=== PATIENT | male | born 2005 | race Hispanic/Latino ===

== ENCOUNTER 2023-09-06 01:58 | Emergency (ER) | payer SELFPAY ==
[2023-09-06] MEDS ORDERED: Ibuprofen 200 MG TAB ONE (08:18)
== END 2023-09-06 08:27 | disposition home or self-care (01) ==
LOC: ERS 01:58
DX: H66.93 Otitis media, unspecified, bilateral (principal)
CPT/HCPCS: 99282

== ENCOUNTER 2023-11-24 18:52 | Emergency (ER) | payer SELFPAY ==
[2023-11-24] MEDS ORDERED: Ondansetron ODT 4 MG TAB ONE ×2 (21:07→22:12)
== END 2023-11-24 22:29 | disposition home or self-care (01) ==
LOC: ERS 18:52
DX: B34.9 Viral infection, unspecified (principal); F17.290 Nicotine dependence, other tobacco product, uncomplicated
CPT/HCPCS: 70450; 87428; Q0162

== ENCOUNTER 2024-03-13 07:23 | Emergency (ER) | payer SELFPAY ==
[2024-03-13] MEDS ORDERED: diphenhydrAMINE 50 MG/ML VIAL ONE (07:49)
[2024-03-13] MEDS ORDERED: Metoclopramide HCl 10 MG (2 mL) VIAL ONE (07:50)
[2024-03-13] MEDS ORDERED: Haloperidol Lactate 5 MG/ML VIAL ONE (07:50)
[2024-03-13] MEDS ORDERED: Ondansetron PF 4 MG/2 ML Vial ONE (07:50)
[2024-03-13 08:03] LABS: #Basophils 0.03 10x3/uL (0.0-0.2); %Basophils 0.4 % (0.0-1.0); %Eosinophils 0.4 % (0.0-10.0); %Lymphocytes 19.6 % (28.0-48.0); %Monocytes 7.6 % (0.0-4.0); %Neutrophils 71.9 % (31.0-61.0); Hematocrit 43.4 % (42.0-52.0); Hemoglobin 15.1 g/dL (14.0-18.0); Mean Corpuscular HGB CONC 34.8 g/dL (32.0-36.0); Mean Corpuscular Volume 83.3 fL (78.0-98.0); Mean Platelet Volume 12.6 fL (7.4-10.4); Platelet Count 129 10x3/uL (130-400); RBC Distribution Width 12.4 % (11.5-14.5); Red Blood Cell (RBC) Count 5.21 mill/uL (4.00-5.20)
[2024-03-13 08:18] LABS: ALT (SGPT) 15 U/L (Less than 45); AST (SGOT) 18 U/L (11-34); Albumin 4.3 g/dL (3.1-4.5); Alkaline Phosphatase 74 U/L (50-130); Anion Gap 12 mmol/L (10-20); BUN (Urea Nitrogen) 8 mg/dL (8.9-20.6); Calc. Creatinine Clearance 0 mL/min (70-130); Calcium 9.5 mg/dL (7.8-10.44); Carbon Dioxide 26 mmol/L (22-29); Chloride 107 mmol/L (98-107); Estimated GFR 119; Globulin 3.1 g/dL (2.4-3.5); Glucose 113 mg/dL (70-105); Lipase 10 U/L (8-78); Potassium 3.6 mmol/L (3.5-5.1); Protein, Total 7.4 g/dL (6.0-8.3); Sodium 141 mmol/L (136-145)
== END 2024-03-13 08:53 | disposition home or self-care (01) ==
LOC: ERS 07:23
DX: R11.2 Nausea with vomiting, unspecified (principal); F12.10 Cannabis abuse, uncomplicated
CPT/HCPCS: 36415; 80053; 83690; 85025; 96361; 96374; 96375; J1200; J1630; J2405; J2765

== ENCOUNTER 2024-03-15 04:58 | Emergency (ER) | payer SELFPAY ==
[2024-03-15] MEDS ORDERED: Ondansetron PF 4 MG/2 ML Vial ONE (05:31)
[2024-03-15 05:42] LABS: #Basophils Less than 0.03 10x3/uL (0.0-0.2); #Eosinophils Less than 0.03 10x3/uL (0.0-0.7); %Basophils 0.4 % (0.0-1.0); %Eosinophils 0.4 % (0.0-10.0); %Lymphocytes 28.2 % (28.0-48.0); Hemoglobin 15.2 g/dL (14.0-18.0); Mean Corpuscular HGB CONC 34.5 g/dL (32.0-36.0); Mean Corpuscular Hemoglobin 28.7 pg (25.0-35.0); Mean Platelet Volume 12.5 fL (7.4-10.4); Platelet Count 133 10x3/uL (130-400); RBC Distribution Width 12.4 % (11.5-14.5)
[2024-03-15 06:02] LABS: Amphetamine Not Detected (NotDetected); Barbiturates Screen Not Detected (NotDetected); Benzodiazepine Screen Not Detected (NotDetected); Cocaine Metabolite Screen Not Detected (NotDetected); Methadone Not Detected (NotDetected); Methamphetamine Not Detected (NotDetected); Opiate Screen Not Detected (NotDetected); Oxycodone Screen Not Detected (NotDetected); Phencyclidine (PCP) Not Detected (NotDetected); THC/Cannabinoid Screen Detected (NotDetected); Tricyclic Screen Not Detected (NotDetected)
[2024-03-15 06:04] LABS: Bacteria/HPF None Seen HPF (None Seen); Bilirubin Negative (Negative); Blood, Urine Negative (Negative); CAUTI Indications for Culture Pelvic or flank pain; Clarity Clear (Clear); Glucose, Urine (Dipstick) Normal (Negative); Ketone, Urine 80 mg/dL (Negative); Leukocyte Negative Leu/uL (Negative); Nitrite Negative (Negative); Protein, Urine (Dipstick) 30 mg/dL (Neg-Trace); RBC/HPF None Seen HPF (0-3); Specific Gravity, Urine 1.031 (1.002-1.036); Squamous Epithelial 0-3 HPF (0-3); Urobilinogen 3 mg/dL (Less than 2); WBC/HPF 0-3 HPF (0-3)
[2024-03-15 06:08] LABS: Urine Culture Reflex No No
[2024-03-15 06:26] LABS: ALT (SGPT) 11 U/L (Less than 45); AST (SGOT) 15 U/L (11-34); Albumin 4.5 g/dL (3.1-4.5); Alkaline Phosphatase 74 U/L (50-130); Anion Gap 13 mmol/L (10-20); BUN (Urea Nitrogen) 9 mg/dL (8.9-20.6); Bilirubin, Total 1.1 mg/dL (0.3-1.2); Calc. Creatinine Clearance 0 mL/min (70-130); Calcium 9.7 mg/dL (7.8-10.44); Carbon Dioxide 26 mmol/L (22-29); Chloride 107 mmol/L (98-107); Estimated GFR 125; Glucose 107 mg/dL (70-105); Lipase 9 U/L (8-78); Potassium 3.2 mmol/L (3.5-5.1); Protein, Total 7.5 g/dL (6.0-8.3); Sodium 143 mmol/L (136-145)
[2024-03-15] MEDS ORDERED: Ketorolac Tromethamine 30 MG (1 mL) VIAL ONE (06:38)
[2024-03-15] MEDS ORDERED: Iopamidol-370 76% 500 ML MDV (1 ML CHARGE) ONE (09:34)
== END 2024-03-15 06:49 | disposition home or self-care (01) ==
LOC: ERS 04:58
DX: R19.7 Diarrhea, unspecified (principal); K52.9 Noninfective gastroenteritis and colitis, unspecified
CPT/HCPCS: 74177; 80053; 80306; 81001; 83690; 85025; 96361; 96374; 96375; J1885; J2405; Q9967

== ENCOUNTER 2024-03-16 19:29 | Emergency (ER) | payer BC, SELFPAY ==
[2024-03-16] MEDS ORDERED: hydrOXYzine 25 MG TAB ONE (22:20)
== END 2024-03-16 22:25 | disposition home or self-care (01) ==
LOC: ERS 19:29
DX: F41.8 Other specified anxiety disorders (principal)
CPT/HCPCS: 99284